=== PATIENT | female | born 1995 | race Caucasian/White ===

== ENCOUNTER 2020-03-01 12:44 | Emergency (ER) | payer SELFPAY ==
[2020-03-01] MEDS ORDERED: CYCLOBENZAPRINE HCL 10 MG TABLET PO ONE (13:25)
--- NOTE | 2020-03-01 13:31 | ER Document Report ---
ED Neck/Back Problem - General Chief Complaint: Back Pain Stated Complaint: BACK PAIN Time Seen by Provider: 03/01/20 13:20 Mode of Arrival: Ambulatory Information source: Patient Notes: 24-year-old female presented to ED for complaint of right upper back pain. She identifies herself as a male. The fianc states that she had to go to work yesterday and told him not to mow the grass and he mowed the grass and entrance morning he has pain to the right upper back. He does have a medical history of asthma. Patient also has a history of back pain with back spurs. Patient is alert oriented respirations regular nonlabored speaking in full sentences. - HPI Patient complains to provider of: Pain, Upper back Onset: This morning Where: Home Onset: Sudden Timing: Still present Quality of pain: Sharp Severity: Moderate Pain Level: 2 Context: Bending Recent injury: Possibly Associated symptoms: Like prior neck/back pain, Upper back pain. denies: Motor loss, Numbness/tingling, Radiation to arm, Radiation to chest, Radiation to leg, Sensory loss, Sweaty, Unable to urinate, Lower back pain Exacerbated by: Movement of trunk Relieved by: Nothing Similar symptoms previously: Yes Recently seen / treated by doctor: Yes - Related Data Allergies/Adverse Reactions: Sulfa (Sulfonamide Antibiotics) Allergy (Verified 03/01/20 13:09) Past Medical History - General Information source: Patient - Social History Smoking Status: Current Every Day Smoker Cigarette use (# per day): Yes - Vapor Smoking Education Provided: Yes - Minutes Frequency of alcohol use: None Drug Abuse: None Lives with: Spouse/Significant other Family History: Reviewed & Not Pertinent Patient has suicidal ideation: No Patient has homicidal ideation: No - Past Medical History Cardiac Medical History: Reports: None Pulmonary Medical History: Reports: Hx Asthma EENT Medical History: Reports: None Neurological Medical History: Reports: None Endocrine Medical History: Reports: None Renal/ Medical History: Reports: None Malignancy Medical History: Reports: None GI Medical History: Reports: None Musculoskeletal Medical History: Reports Hx Musculoskeletal Deformity Skin Medical History: Reports None Psychiatric Medical History: Reports: None Traumatic Medical History: Reports: None Infectious Medical History: Reports: None Surgical Hx: Negative Past Surgical History: Reports: None - Immunizations Immunizations up to date: Yes Review of Systems - Review of Systems Constitutional: No symptoms reported EENT: No symptoms reported Cardiovascular: No symptoms reported Respiratory: No symptoms reported Gastrointestinal: No symptoms reported Genitourinary: No symptoms reported Female Genitourinary: No symptoms reported Musculoskeletal: Back pain, Muscle pain - Right upper back pain Skin: No symptoms reported Hematologic/Lymphatic: No symptoms reported Neurological/Psychological: No symptoms reported -: Yes All other systems reviewed and negative Physical Exam - Vital signs Vitals: Temp Pulse Resp BP Pulse Ox 97.9 F 59 L 16 113/58 L 96 03/01/20 12:48 03/01/20 12:48 03/01/20 12:48 03/01/20 12:48 03/01/20 12:48 Interpretation: Normal - General General appearance: Appears well, Alert - HEENT Head: Normocephalic, Atraumatic Eyes: Normal Pupils: PERRL - Respiratory Respiratory status: No respiratory distress Chest status: Nontender Breath sounds: Normal Chest palpation: Normal - Cardiovascular Rhythm: Regular Heart sounds: Normal auscultation Murmur: No - Abdominal Inspection: Normal Distension: No distension Bowel sounds: Normal Tenderness: Nontender Organomegaly: No organomegaly - Back Back: Normal, Tender - Right upper back. No: Vertebra tenderness - Extremities General upper extremity: Normal inspection, Nontender, Normal color, Normal ROM, Normal temperature General lower extremity: Normal inspection, Nontender, Normal color, Normal ROM, Normal temperature, Normal weight bearing. No: Efren's sign - Neurological Neuro grossly intact: Yes Cognition: Normal Orientation: AAOx4 [place] Coma Scale Eye Opening: Spontaneous [place] Coma Scale Verbal: Oriented [place] Coma Scale Motor: Obeys Commands [place] Coma Scale Total: 15 Speech: Normal Motor strength normal: LUE, RUE, LLE, RLE Sensory: Normal - Psychological Associated symptoms: Normal affect, Normal mood - Skin Skin Temperature: Warm Skin Moisture: Dry Skin Color: Normal Course - Re-evaluation Re-evalutation: 03/01/20 22:34 Chest x-ray was was negative for any acute cardiopulmonary changes. Did did not show any fractures. Patient was treated with Flexeril and discharged home with prescription for Flexeril for her muscle pain. Patient verbalized understanding and agreement with treatment plan patient was discharged home - Vital Signs Vital signs: Temp Pulse Resp BP Pulse Ox 98.0 F 61 16 126/69 H 100 03/01/20 14:31 03/01/20 14:31 03/01/20 14:31 03/01/20 14:31 03/01/20 14:31 - Diagnostic Test Radiology reviewed: Image reviewed, Reports reviewed Discharge - Discharge Clinical Impression: Upper back pain on right side Condition: Stable Disposition: HOME, SELF-CARE Additional Instructions: Upper Back Strain You have a strain of the upper back. "Strain" means stretching and partial tearing of muscle and tendon fibers. This can happen suddenly, such as when lifting, or can be due to chronic muscle tension. X-rays don't show back strain. X-rays are only taken if there's reason to suspect a problem in the bones. At first, you should cold-pack the painful area and rest. We often prescribe antiinflammatory medicine. If you are having muscle spasms, a muscle relaxer can help. As you begin to improve, it's important to strengthen and stretch the muscles. Your doctor will advise you on the proper care for your back at each stage in your recovery. You may be better in a few days -- or healing may take several weeks. If new symptoms develop ( such as radiation of pain, numbness, weakness, or tingling) occur, you should be re-examined. Further testing may be necessary. Exercise Program for the Shoulder Since the shoulder moves in so many directions, the joint attachment is weak. Muscles provide most of the stability to the shoulder. You must exercise your shoulder to prevent painful instability or stiffening. PASSIVE - These may be begun within a few days of the injury. While standing, lean forward, allowing the arm to hang down towards the floor. Move the arm in small circles while slowly twisting your chest towards and away from the hanging arm. Do this for one minute. ACTIVE - These may be performed when the doctor gives permission. Begin with the arms at the sides. Raise the arms forward (shoulder's width apart) until they reach shoulder level. Then slowly swing both arms back until they are aiming straight out away from each other. Then bring them forward again, and finally, lower them to your sides. Repeat 20 to 30 times. As you improve, put weights in your hands for the exercise. Start with one pound, and work up to 10 pounds. Never use more than is comfortable. Athletes may work up to 30 pounds. MUSCLE RELAXERS: Muscle relaxing medications are usually prescribed for acute muscle spasm or injury to the neck and back. They are often combined with antiinflammatory pain medication for increased relief. You may stop the muscle relaxer when the pain and stiffness have improved. Start the medication again if spasms recur. Muscle relaxers may cause drowsiness, especially with the first dose. Do not operate machinery or drive while under the effects of the medication. Most muscle relaxers last up to 24 hours. Do not combine the medication with alcohol. ICE PACKS: Apply ice packs frequently against the painful area. Many different schedules are recommended, such as "20 minutes on, 20 minutes off" or "one hour ice, two hours rest." If you need to work, you may need to go longer between ice treatments. You should plan to have the area ice packed AT LEAST one fourth of the time. The ice should be applied over the wrap, tape, or splint, or over a layer of cloth -- not directly against the skin. Some ice bags have a built-in cloth and can be put directly on the skin. WARM PACKS: After approximately two days, apply gentle heat (such as a heating pad or hot water bottle) for about 20 to 30 minutes about every two hours -- at least four times daily. Warmth and elevation will help you make a more rapid recovery, and will ease the pain considerably. Do not use HOT heat, and never apply heat for longer than 30 minutes. The continuous heat can invisibly damage skin and muscles -- even when no burn is seen on the surface. Damaged muscles can make you MORE sore. FOLLOW-UP CARE: If you have been referred to a physician for follow-up care, call the physicians office for an appointment as you were instructed or within the next two days. If you experience worsening or a significant change in your symptoms, notify the physician immediately or return to the Emergency Department at any time for re-evaluation. Prescriptions: Cyclobenzaprine HCl [Flexeril 10 mg Tablet] 10 mg PO TIDP PRN #15 tab PRN Reason: Forms: Smoking Cessation Education, Return to Work
--- NOTE | 2020-03-01 14:11 | RADIOLOGY REPORT (SQ) ---
EXAM DESCRIPTION: CHEST 2 VIEWS IMAGES COMPLETED DATE/TIME: 03/01/2020 1:52 pm REASON FOR STUDY: pain in right upper back COMPARISON: None. TECHNIQUE: Frontal and lateral radiographic views of the chest acquired. NUMBER OF VIEWS: Two view. LIMITATIONS: None. FINDINGS: LUNGS AND PLEURA: No pneumothorax. No consolidation or pleural effusion. MEDIASTINUM AND HILAR STRUCTURES: No contour abnormalities. HEART AND VASCULAR STRUCTURES: Heart normal size. BONES: No acute findings. HARDWARE: None in the chest. OTHER: No other significant finding. IMPRESSION: NO ACUTE FINDINGS. TECHNICAL DOCUMENTATION: JOB ID: [id number] [place]-72 2010 [email or web address]- All Rights Reserved Reading location - IP/workstation name: [email or web address]
[2020-03-01 14:41] VITALS: BP 126/69
== END 2020-03-01 14:31 | disposition home or self-care (01) ==
LOC: ER 12:44
DX: M54.6 Pain in thoracic spine (principal); F17.290 Nicotine dependence, other tobacco product, uncomplicated; Z88.2 Allergy status to sulfonamides
CPT/HCPCS: 71046; 99283

== ENCOUNTER 2020-07-21 08:11 | Emergency (ER) | payer BC ==
[2020-07-21 08:18] VITALS: BP 111/57
[2020-07-21] MEDS ORDERED: NORMAL SALINE 1000 ML 1,000 ML IV ONE (09:19)
[2020-07-21] MEDS ORDERED: ONDANSETRON HCL INJ/PF 4 MG/2 ML SDV IV ONE (09:24)
[2020-07-21] MEDS ORDERED: MORPHINE SULFATE 10 MG/ML INJ IV ONE (09:24)
[2020-07-21 10:03] LABS: HEMATOCRIT 43.3 % (36.0-47.0); HEMOGLOBIN 14.9 g/dL (12.0-15.5); MEAN CORPUSCULAR HEMOGLOBIN 29.1 pg (27.0-33.4); MEAN CORPUSCULAR HGB CONC 34.5 g/dL (32.0-36.0); MEAN CORPUSCULAR VOLUME 84 fl (80-97); PLATELET COUNT 189 10^3/uL (150-450); RED BLOOD COUNT 5.13 10^6/uL (3.72-5.28); RED CELL DISTRIBUTION WIDTH 12.6 % (11.5-14.0); WHITE BLOOD COUNT 12.5 10^3/uL (4.0-10.5)
[2020-07-21 10:17] LABS: ALBUMIN 4.1 g/dL (3.5-5.0); ANION GAP 12 (5-19); ASPARTATE AMINO TRANSFERASE 24 U/L (14-36); BILIRUBIN,TOTAL 0.7 mg/dL (0.2-1.3); BLOOD UREA NITROGEN 12 mg/dL (7-20); CALCIUM 9.4 mg/dL (8.4-10.2); CARBON DIOXIDE 23 mmol/L (22-30); CHLORIDE 105 mmol/L (98-107); GLUCOSE 87 mg/dL (75-110); NEONATAL BILIRUBIN RESULT 0.7 mg/dL (0.1-1.1); POTASSIUM 3.9 mmol/L (3.6-5.0)
[2020-07-21 10:24] LABS: ALKALINE PHOSPHATASE < 20 U/L (38-126)
[2020-07-21 10:26] LABS: ABSOLUTE LYMPHOCYTES# (MANUAL) 1.3 10^3/uL (0.5-4.7); ABSOLUTE MONOCYTES # (MANUAL) 0.5 10^3/uL (0.1-1.4); BAND NEUTROPHILS % (MANUAL) 4 % (3-5); BASOPHILS % (MANUAL) 0 % (0-2); EOSINOPHILS % (MANUAL) 0 % (0-6); LYMPHOCYTES % (MANUAL) 10 % (13-45); MONOCYTES % (MANUAL) 4 % (3-13); SEGMENTED NEUTROPHILS % (MAN) 82 % (42-78); TOTAL CELLS COUNTED 100
--- NOTE | 2020-07-21 10:26 | RADIOLOGY REPORT (SQ) ---
EXAM DESCRIPTION: CT LUMBAR SPINE WITHOUT IMAGES COMPLETED DATE/TIME: 07/21/2020 10:13 am REASON FOR STUDY: low back pain/bilat radiculopathy COMPARISON: None. TECHNIQUE: Axial images acquired through the lumbar spine without intravenous contrast. Images revi ewed with lung, soft tissue and bone windows. Reconstructed coronal and sagittal MPR images reviewed . All images stored on PACS. All CT scanners at this facility use dose modulation, iterative reconstruction, and/or weight based d osing when appropriate to reduce radiation dose to as low as reasonably achievable (ALARA). [facility]: Dose Right [facility]: CareDose [facility]: Dose Right [facility]: Teradose 4D [facility]: SDI RADIATION DOSE: mGy. LIMITATIONS: None. FINDINGS: SEGMENTATION: Normal. No transitional anatomy. ALIGNMENT: Normal. VERTEBRAL BODIES: No fractures. No dislocation. No acute findings. DISCS: Mild disc space narrowing at L3-L4, L4-L5 and L5-S1. There is broad-based annular disc bulgin g at these levels with facet arthropathy. There is moderate central canal stenosis at L3-L4 and L4-L 5. No significant foraminal narrowing appreciated on non contrasted CT. PEDICLES, TRANSVERSE PROCESSES: No fractures. No dislocation. No acute findings. FACETS, POSTERIOR ELEMENTS: No fractures. No dislocation. No spinal stenosis. HARDWARE: None in the spine. VISUALIZED RIBS: No fractures. SOFT TISSUES: No significant or acute finding in adjacent soft tissues. OTHER: No other significant finding. IMPRESSION: Multilevel disc degenerative disease with moderate central spur canal stenosis at L3-L4 and L4-L5. Further evaluation with MRI on a non emergent basis may be beneficial. No acute findings . TECHNICAL DOCUMENTATION: JOB ID: [id number] Quality ID # [id number]: Final reports with documentation of one or more dose reduction techniques (e.g., Au tomated exposure control, adjustment of the mA and/or kV according to patient size, use of iterative reconstruction technique) 2010 [email or web address]- All Rights Reserved Reading location - IP/workstation name: [email or web address]
[2020-07-21 10:28] LABS: PLATELET COMMENT ADEQUATE; RBC MORPHOLOGY COMMENT NORMO-CYTIC/CHROMIC
[2020-07-21] MEDS ORDERED: ACETAMINOPHEN 325 MG TABLET PO ONE (10:37)
[2020-07-21 11:02] LABS: APPEARANCE,URINE SLIGHTLY-CLOUDY; BILIRUBIN,URINE NEGATIVE (NEGATIVE); COLOR,URINE YELLOW; GLUCOSE, URINE NEGATIVE (NEGATIVE); KETONES,URINE NEGATIVE (NEGATIVE); LEUKOCYTE ESTERASE,URINE LARGE (NEGATIVE); NITRITE,URINE NEGATIVE (NEGATIVE); PROTEIN,URINE NEGATIVE (NEGATIVE); URINE SPECIFIC GRAVITY 1.006; UROBILINOGEN,URINE NEGATIVE mg/dL (<2.0)
[2020-07-21] MEDS ORDERED: DEXAMETHASONE SOD PHOSPHATE INJ 4 MG/1 ML VIAL IV ONE (11:06)
--- NOTE | 2020-07-21 11:27 | ER Document Report ---
Entered by JESSEE SPAIN SCRIBE 07/21/20 0914 Acting as scribe for:JEN FOLEY MD ED Neck/Back Problem - General Chief Complaint: Back Pain Stated Complaint: BACK PAIN Time Seen by Provider: 07/21/20 08:45 Mode of Arrival: Ambulatory Information source: Patient Notes: This 24 year old patient who identifies as male presents to the ED today accompanied by his with complaints of lower back pain that started today after work. Pain starts at mid-back and radiates down to his bilateral hips and legs. at bedside reports that the patient has had issues with his back for awhile and was actually seen here in 02/2020 for the same problem and was prescribed Flexeril; he states that the patient only had a chest x-ray done at that time. Today, the patient was doing some heavy lifting at work which exacerbated the pain, so he decided to come to the ED for evaluation. Patient did take Flexeril around 0500 this morning. Denies any difficulty breathing. - Related Data Allergies/Adverse Reactions: Sulfa (Sulfonamide Antibiotics) Allergy (Verified 03/01/20 13:09) Past Medical History - General Information source: Patient, [facility] Records - Social History Smoking Status: Unknown if Ever Smoked Smoking Education Provided: No Lives with: Spouse/Significant other Family History: Reviewed & Not Pertinent Patient has suicidal ideation: No Patient has homicidal ideation: No Pulmonary Medical History: Reports: Hx Asthma Musculoskeletal Medical History: Reports Hx Musculoskeletal Deformity - Immunizations Immunizations up to date: Yes Review of Systems - Review of Systems Constitutional: No symptoms reported EENT: No symptoms reported Cardiovascular: See HPI. denies: Dyspnea Respiratory: No symptoms reported Gastrointestinal: No symptoms reported Genitourinary: No symptoms reported Female Genitourinary: No symptoms reported Musculoskeletal: See HPI, Back pain, Joint pain, Muscle pain Skin: No symptoms reported Hematologic/Lymphatic: No symptoms reported Neurological/Psychological: No symptoms reported -: Yes All other systems reviewed and negative Physical Exam - Vital signs Vitals: Temp Pulse Resp BP Pulse Ox 100.6 F H 110 H 19 111/57 L 97 07/21/20 08:17 07/21/20 08:17 07/21/20 08:17 07/21/20 08:17 07/21/20 08:17 - General General appearance: Alert In distress: None - HEENT Head: Normocephalic, Atraumatic Eyes: Normal Pupils: PERRL - Respiratory Respiratory status: No respiratory distress Chest status: Nontender Breath sounds: Normal Chest palpation: Normal - Cardiovascular Rhythm: Regular Heart sounds: Normal auscultation Murmur: No Friction rub: No Gallop: None auscultated - Abdominal Inspection: Normal Distension: No distension Bowel sounds: Normal Tenderness: Nontender - Abdomen soft Organomegaly: No organomegaly - Back Notes: Deferred by patient - Extremities General upper extremity: Normal inspection General lower extremity: Normal inspection, Other - negative straight leg raise at 35 degrees bilaterally. No: Edema - Neurological Neuro grossly intact: Yes Orientation: AAOx4 [place] Coma Scale Eye Opening: Spontaneous [place] Coma Scale Verbal: Oriented [place] Coma Scale Motor: Obeys Commands [place] Coma Scale Total: 15 - Psychological Associated symptoms: Normal affect, Normal mood - Skin Skin Temperature: Warm Skin Moisture: Dry Skin Color: Normal Course - Re-evaluation Re-evalutation: 07/21/20 11:15 Patient is feeling better since given pain medications for his back. Patient also required some Tylenol due to headache from the morphine. - Vital Signs Vital signs: Temp Pulse Resp BP Pulse Ox 100.6 F H 110 H 19 111/57 L 97 07/21/20 08:17 07/21/20 08:17 07/21/20 08:17 07/21/20 08:17 07/21/20 08:17 07/21/20 11:15 Vital signs show slight tach 100.6 pulse of 110 respiratory rate 19 blood pressure 111/57 pulse skin oximetry 97% - Laboratory Result Diagrams: 07/21/20 09:35 07/21/20 09:35 Laboratory results interpreted by me: 07/21/20 07/21/20 07/21/20 09:35 09:35 10:33 WBC 12.5 H Seg Neuts % (Manual) 82 H Lymphocytes % (Manual) 10 L Abs Neuts (Manual) 10.8 H Alkaline Phosphatase < 20 L Urine Blood MODERATE H Ur Leukocyte Esterase LARGE H Laboratory showed disclose leukocyte esterase large positive on the urine with moderate blood in the urine as well. Most likely has a urinary tract infection. - Diagnostic Test Radiology reviewed: Image reviewed, Reports reviewed Radiology results interpreted by me: 07/21/20 11:[address] 07/21/20 09:21 IMPRESSION: Multilevel disc degenerative disease with moderate central spur canal stenosis at L3-L4 and L4-L5. Further evaluation with MRI on a non emergent basis may be beneficial. No acute findings. Discharge - Discharge Clinical Impression: Lumbar degenerative disc disease, Urinary tract infection Condition: Good Disposition: HOME, SELF-CARE Instructions: Low Back Pain ([facility]), Urinary Tract Infection ([facility]) Additional Instructions: Low Back Pain Three out of every four people will have an episode of disabling back pain during their lifetime. Most commonly the pain is due to straining of the muscles and ligaments in the low back. Usual treatment includes: (1) Rest on a firm surface. Avoid lying on your stomach. (2) Ice pack the painful area. After a few days, gentle heat may be used intermittently to relax the area, or ice packs can be continued. (3) Medication may be needed -- muscle relaxers and antiinflammatory medicines are commonly used. (4) As the back improves, exercises are prescribed to strengthen the back and abdominal muscles. Your doctor will advise you on the proper care for your back at each stage in your recovery. You may be better in a few days -- or healing may take several weeks. If new symptoms of a "herniated disc" (radiation of pain, numbness, or tingling down the back of the leg or weakness in the leg) occur, you should be re-examined. Further testing may be necessary. Today's exam demonstrates on CT scan of lumbar spine with multilevel degenerative disc disease L3-4 and L4-5. It is recommended that you follow-up with orthopedic and there may be a consideration to order a MRI scan. Prescriptions: Ciprofloxacin HCl [Cipro 500 mg Tablet] 500 mg PO BID #20 tablet Methylprednisolone [Medrol Dosepack (4 mg/Tab) 21 Tab/Dosepak] 4 mg PO ASDIR PRN #21 tab.ds.pk PRN Reason: Ibuprofen [Motrin 800 mg Tablet] 800 mg PO Q8H PRN #21 tablet PRN Reason: pain Hydrocodone/Acetaminophen [[place] 5-325 mg Tablet] 1 tab PO QID PRN #8 tablet PRN Reason: severe pain Forms: Return to Work Referrals: EMILE ASIF DO [ACTIVE STAFF] - Follow up as needed I personally performed the services described in the documentation, reviewed and edited the documentation which was dictated to the scribe in my presence, and it accurately records my words and actions.
== END 2020-07-21 11:42 | disposition home or self-care (01) ==
LOC: ER 08:11
DX: M51.36 Other intervertebral disc degeneration, lumbar region (principal); N39.0 Urinary tract infection, site not specified; Z88.2 Allergy status to sulfonamides
CPT/HCPCS: 99285; 96361; 96374; 96375; 36415; 85025; 80053; 81001; 72131; J1100; J2270; J2405; J7030